=== PATIENT | female | born 1945 | race Caucasian/White ===

== ENCOUNTER 2020-05-09 15:18 | Inpatient (IN) | payer MEDICARE, BC ==
[2020-05-10] MEDS ORDERED: ATOR20TA PO (03:52)
[2020-05-10] MEDS ORDERED: GABA-532 PO (03:52)
[2020-05-10] MEDS ORDERED: PROP40TA7 PO (03:52)
[2020-05-10] MEDS ORDERED: FLUT16SP BNOSTRILS (03:52)
[2020-05-10] MEDS ORDERED: PANT40TA49 PO (03:52)
[2020-05-10] MEDS ORDERED: LORA-259 PO (03:52)
[2020-05-10] MEDS ORDERED: sodium chloride PO (03:52)
[2020-05-10] MEDS ORDERED: LISI40TA4 PO (03:52)
[2020-05-10] MEDS ORDERED: TRIF7.5D5 EACHEYE (03:52)
== END 2020-05-10 00:03 | disposition still patient (30) | DRG 885 ==
LOC: GPS 22:14
PROVIDERS: ADMIT Psychiatry & Neurology Psychiatry; ATTEND Internal Medicine
DX: F29 Unspecified psychosis not due to a substance or known physiological condition (principal)

== ENCOUNTER 2020-05-10 03:41 | Inpatient (IN) | payer MEDICARE, BC ==
[~2020-05-10] VITALS: Ht 160 cm; Wt 57.2 kg
[2020-05-10] MEDS ORDERED: ATOR20TA PO (03:52)
[2020-05-10] MEDS ORDERED: TRIF7.5D5 EACHEYE (03:52)
[2020-05-10] MEDS ORDERED: sodium chloride PO (03:52)
[2020-05-10] MEDS ORDERED: LISI40TA4 PO (03:52)
[2020-05-10] MEDS ORDERED: PROP40TA7 PO (03:52)
[2020-05-10] MEDS ORDERED: FLUT16SP BNOSTRILS (03:52)
[2020-05-10] MEDS ORDERED: GABA-532 PO (03:52)
[2020-05-10] MEDS ORDERED: PANT40TA49 PO (03:52)
[2020-05-10] MEDS ORDERED: LORA-259 PO (03:52)
[2020-05-10] MEDS ORDERED: CLONAZEPAM 0.5 MG TABLET PO STA (04:54)
[2020-05-10] MEDS ORDERED: MAG HYDROX/AL HYDROX/SIMETH 30 ML LIQUID UDC PO PRN (05:00)
[2020-05-10] MEDS ORDERED: CLONIDINE HCL 0.1 MG TABLET PO ONE (06:15)
[2020-05-10] MEDS: CLONAZEPAM 0.5 MG TABLET PO PRN ×2 (06:28→13:36)
[2020-05-10] MEDS ORDERED: CLONAZEPAM 0.5 MG TABLET PO PRN (06:30)
[2020-05-10 07:30] VITALS: BP 118/64
[2020-05-10 07:55] LABS: CREATININE 0.7 mg/dL (0.6-1.3); POTASSIUM 4.5 mmol/L (3.5-5.1)
[2020-05-10 07:57] LABS: BASOPHILS # (AUTO) 0.1 K/uL (0.0-8.0); BASOPHILS % (AUTO) 1.7 % (0.0-2.0); EOSINOPHILS # (AUTO) 0.1 K/uL (0.0-0.7); EOSINOPHILS % (AUTO) 2.8 % (0.0-7.0); HEMATOCRIT 36.8 % (31.2-41.9); HEMOGLOBIN 12.4 g/dL (10.9-14.3); LYMPHOCYTES # (AUTO) 0.8 K/uL (20.0-40.0); LYMPHOCYTES % (AUTO) 21.1 % (20.5-51.5); MEAN CORPUSCULAR HEMOGLOBIN 33.6 uug (24.7-32.8); MEAN CORPUSCULAR HGB CONC 34 g/dL (32.3-35.6); MEAN CORPUSCULAR VOLUME 99.5 fL (75.5-95.3); MONOCYTES # (AUTO) 0.4 K/uL (2.0-10.0); MONOCYTES % (AUTO) 9.7 % (0.0-11.0); NEUTROPHILS # (AUTO) 2.4 K/uL (1.8-8.9); NEUTROPHILS % (AUTO) 64.7 % (38.5-71.5); PLATELET COUNT (AUTO) 225 K/uL (179-408); WHITE BLOOD COUNT (AUTO) 3.8 K/uL (3.8-11.8)
[2020-05-10] MEDS: PANTOPRAZOLE SODIUM 40 MG TABLET.DR PO SCH ×2 (08:28→17:20)
[2020-05-10] MEDS: FLUTICASONE PROP NASAL SPRAY 16 GM BOTTLE NS SCH (08:30)
[2020-05-10] MEDS: PROPRANOLOL HCL 40 MG TABLET PO SCH ×2 (08:30→20:33)
[2020-05-10] MEDS ORDERED: TRIFLURIDINE XX SCH (15:00)
[2020-05-10 16:18] VITALS: BP 116/77
[2020-05-10] MEDS: SODIUM CHLORIDE 1,000 MG TABLET PO SCH (17:20)
[2020-05-10 20:00] VITALS: BP 119/66
[2020-05-10] MEDS: HALOPERIDOL 5 MG TABLET PO SCH (20:25)
[2020-05-10] MEDS: ATORVASTATIN 20 MG TABLET PO SCH (20:25)
[2020-05-10] MEDS: MIRTAZAPINE 15 MG TABLET PO SCH (20:25)
[2020-05-10] MEDS: LISINOPRIL 20 MG TABLET PO SCH (20:26)
[2020-05-10] MEDS ORDERED: TRIFLUOPERAZINE 5 MG PO SCH (21:00)
[2020-05-11] MEDS: PANTOPRAZOLE SODIUM 40 MG TABLET.DR PO SCH ×2 (06:02→16:02)
[2020-05-11 07:30] VITALS: BP 154/85
[2020-05-11] MEDS: FLUTICASONE PROP NASAL SPRAY 16 GM BOTTLE NS SCH (08:08)
[2020-05-11] MEDS: SODIUM CHLORIDE 1,000 MG TABLET PO SCH (08:08)
[2020-05-11] MEDS: PROPRANOLOL HCL 40 MG TABLET PO SCH ×2 (08:09→20:09)
[2020-05-11] MEDS: HYDROXYZINE PAMOATE 25 MG CAPSULE PO PRN (08:41)
[2020-05-11] MEDS: CLONAZEPAM 0.5 MG TABLET PO PRN ×3 (09:50→20:05)
[2020-05-11 16:00] VITALS: BP 107/55
[2020-05-11 20:00] VITALS: BP 128/67
[2020-05-11] MEDS: MIRTAZAPINE 15 MG TABLET PO SCH (20:04)
[2020-05-11] MEDS: HALOPERIDOL 5 MG TABLET PO SCH (20:04)
[2020-05-11] MEDS: ATORVASTATIN 20 MG TABLET PO SCH (20:05)
[2020-05-11] MEDS: LISINOPRIL 20 MG TABLET PO SCH (20:09)
[2020-05-11] MEDS: TEMAZEPAM 7.5 MG CAPSULE PO PRN (20:30)
[2020-05-12] MEDS: CLONAZEPAM 0.5 MG TABLET PO PRN ×4 (03:43→20:59)
[2020-05-12] MEDS: PANTOPRAZOLE SODIUM 40 MG TABLET.DR PO SCH ×2 (06:00→16:26)
[2020-05-12 07:30] VITALS: BP 134/77
[2020-05-12] MEDS: FLUTICASONE PROP NASAL SPRAY 16 GM BOTTLE NS SCH (08:27)
[2020-05-12] MEDS: PROPRANOLOL HCL 40 MG TABLET PO SCH ×2 (08:27→20:51)
[2020-05-12] MEDS: SODIUM CHLORIDE 1,000 MG TABLET PO SCH (08:27)
[2020-05-12] MEDS: MAGNESIUM HYDROXIDE 30 ML LIQUID UDC PO PRN (08:59)
[2020-05-12] MEDS: HYDROXYZINE PAMOATE 25 MG CAPSULE PO PRN ×2 (10:13→16:26)
[2020-05-12 15:11] VITALS: BP 139/79
[2020-05-12 19:41] LABS: *BILIRUBIN,URIN NEGATIVE (NEGATIVE); *BLOOD, URINE NEGATIVE (NEGATIVE); *CLARITY,URINE SLIGHTLY CLOUDY (CLEAR); *COLOR,URINE YELLOW (YELLOW); *KETONES,URINE NEGATIVE (NEGATIVE); *UROBILINOGEN,URINE 0.2 E.U./dl (NORMAL); LEUKOCYTE ESTERASE ,URINE 2+ (NEGATIVE); NITRITE, URINE NEGATIVE (NEGATIVE); UGLUCOSE NEGATIVE (NEGATIVE)
[2020-05-12 20:00] VITALS: BP 119/66
[2020-05-12] MEDS: TRIFLUOPERAZINE 2 MG PO SCH (20:48)
[2020-05-12] MEDS: ATORVASTATIN 20 MG TABLET PO SCH (20:48)
[2020-05-12] MEDS: LISINOPRIL 20 MG TABLET PO SCH (20:49)
[2020-05-12] MEDS ORDERED: TRIFLUOPERAZINE 5 MG PO SCH (21:00)
[2020-05-12] MEDS: TEMAZEPAM 7.5 MG CAPSULE PO PRN (22:07)
[2020-05-12 23:49] LABS: BACTERIA,URINE FEW /HPF (NONE SEEN); SQUAMOUS EPITHELIAL CELL,UR FEW /HPF (NONE SEEN)
[2020-05-13] MEDS: CLONAZEPAM 0.5 MG TABLET PO PRN ×3 (04:17→20:29)
[2020-05-13] MEDS: PANTOPRAZOLE SODIUM 40 MG TABLET.DR PO SCH ×2 (06:35→16:32)
[2020-05-13 07:30] VITALS: BP 145/83
[2020-05-13] MEDS: FLUTICASONE PROP NASAL SPRAY 16 GM BOTTLE NS SCH (08:09)
[2020-05-13] MEDS: SODIUM CHLORIDE 1,000 MG TABLET PO SCH (08:10)
[2020-05-13] MEDS: PROPRANOLOL HCL 40 MG TABLET PO SCH ×2 (08:10→20:30)
[2020-05-13] MEDS: HYDROXYZINE PAMOATE 25 MG CAPSULE PO PRN ×2 (08:10→16:32)
[2020-05-13] MEDS: POLYVINYL ALCOHOL OPHT DROPS 15 ML BOTTLE EACHEYE PRN ×2 (12:15→17:02)
[2020-05-13 15:45] VITALS: BP 138/74
[2020-05-13] MEDS: CEphaleXIN 500 MG CAPSULE PO SCH (16:32)
[2020-05-13] MEDS: ACETAMINOPHEN 325 MG TABLET PO PRN (18:11)
[2020-05-13 19:52] VITALS: BP 138/74
[2020-05-13] MEDS: TRIFLUOPERAZINE 2 MG PO SCH (20:29)
[2020-05-13] MEDS: LISINOPRIL 20 MG TABLET PO SCH (20:30)
[2020-05-13] MEDS: ATORVASTATIN 20 MG TABLET PO SCH (20:30)
[2020-05-14] MEDS: HYDROXYZINE PAMOATE 25 MG CAPSULE PO PRN ×2 (02:10→09:34)
[2020-05-14] MEDS: CLONAZEPAM 0.5 MG TABLET PO PRN ×2 (06:30→20:56)
[2020-05-14] MEDS: PANTOPRAZOLE SODIUM 40 MG TABLET.DR PO SCH ×2 (06:30→16:34)
[2020-05-14 07:30] VITALS: BP 142/66
[2020-05-14] MEDS: FLUTICASONE PROP NASAL SPRAY 16 GM BOTTLE NS SCH (08:55)
[2020-05-14] MEDS: PROPRANOLOL HCL 40 MG TABLET PO SCH ×2 (08:56→20:51)
[2020-05-14] MEDS: CEphaleXIN 500 MG CAPSULE PO SCH ×2 (08:57→16:34)
[2020-05-14] MEDS: SODIUM CHLORIDE 1,000 MG TABLET PO SCH (08:58)
[2020-05-14 16:05] VITALS: BP 111/68
[2020-05-14 20:42] VITALS: BP 99/49
[2020-05-14] MEDS: TRIFLUOPERAZINE 2 MG PO SCH (20:45)
[2020-05-14] MEDS: ATORVASTATIN 20 MG TABLET PO SCH (20:46)
[2020-05-14] MEDS: LISINOPRIL 20 MG TABLET PO SCH (20:52)
[2020-05-15] MEDS: CLONAZEPAM 0.5 MG TABLET PO PRN ×2 (04:15→10:08)
[2020-05-15] MEDS: PANTOPRAZOLE SODIUM 40 MG TABLET.DR PO SCH ×2 (06:04→17:23)
[2020-05-15 07:30] VITALS: BP 136/65
[2020-05-15] MEDS: CEphaleXIN 500 MG CAPSULE PO SCH ×2 (08:36→17:23)
[2020-05-15] MEDS: FLUTICASONE PROP NASAL SPRAY 16 GM BOTTLE NS SCH (08:36)
[2020-05-15] MEDS: SODIUM CHLORIDE 1,000 MG TABLET PO SCH (08:37)
[2020-05-15] MEDS: PROPRANOLOL HCL 40 MG TABLET PO SCH ×2 (08:37→20:05)
[2020-05-15] MEDS: ASPIRIN EC 81 MG TABLET.DR PO SCH (10:05)
[2020-05-15] MEDS: POLYVINYL ALCOHOL OPHT DROPS 15 ML BOTTLE EACHEYE PRN (11:51)
[2020-05-15 16:00] VITALS: BP 113/62
[2020-05-15] MEDS: ACETAMINOPHEN 325 MG TABLET PO PRN (18:19)
[2020-05-15 20:00] VITALS: BP 128/81
[2020-05-15] MEDS: ATORVASTATIN 20 MG TABLET PO SCH (20:04)
[2020-05-15] MEDS: LISINOPRIL 20 MG TABLET PO SCH (20:05)
[2020-05-15] MEDS: TRIFLUOPERAZINE 2 MG PO SCH (20:06)
[2020-05-16] MEDS: TEMAZEPAM 7.5 MG CAPSULE PO PRN (01:28)
[2020-05-16] MEDS: HYDROXYZINE PAMOATE 25 MG CAPSULE PO PRN ×2 (02:30→15:50)
[2020-05-16] MEDS: PANTOPRAZOLE SODIUM 40 MG TABLET.DR PO SCH ×2 (06:08→17:04)
[2020-05-16 07:30] VITALS: BP 148/77
[2020-05-16] MEDS: ASPIRIN EC 81 MG TABLET.DR PO SCH (08:26)
[2020-05-16] MEDS: FLUTICASONE PROP NASAL SPRAY 16 GM BOTTLE NS SCH (08:26)
[2020-05-16] MEDS: CEphaleXIN 500 MG CAPSULE PO SCH ×2 (08:28→17:04)
[2020-05-16] MEDS: SODIUM CHLORIDE 1,000 MG TABLET PO SCH (08:28)
[2020-05-16] MEDS: PROPRANOLOL HCL 40 MG TABLET PO SCH ×2 (08:29→21:00)
[2020-05-16] MEDS: CLONAZEPAM 0.5 MG TABLET PO PRN ×2 (08:29→23:20)
[2020-05-16] MEDS: ACETAMINOPHEN 325 MG TABLET PO PRN (12:28)
[2020-05-16 16:00] VITALS: BP 144/74
[2020-05-16 20:00] VITALS: BP 115/64
[2020-05-16] MEDS: TRIFLUOPERAZINE 2 MG PO SCH (20:40)
[2020-05-16] MEDS: ATORVASTATIN 20 MG TABLET PO SCH (20:41)
[2020-05-16] MEDS: LISINOPRIL 20 MG TABLET PO SCH (21:00)
[2020-05-17] MEDS: PANTOPRAZOLE SODIUM 40 MG TABLET.DR PO SCH ×2 (06:09→16:15)
[2020-05-17] MEDS: CLONAZEPAM 0.5 MG TABLET PO PRN ×2 (06:48→15:06)
[2020-05-17 07:30] VITALS: BP_SYST 143; BP_DIAS 74; BP_DIAS 82
[2020-05-17] MEDS: ASPIRIN EC 81 MG TABLET.DR PO SCH (08:07)
[2020-05-17] MEDS: CEphaleXIN 500 MG CAPSULE PO SCH ×2 (08:07→16:15)
[2020-05-17] MEDS: PROPRANOLOL HCL 40 MG TABLET PO SCH ×3 (08:16→20:41)
[2020-05-17] MEDS: FLUTICASONE PROP NASAL SPRAY 16 GM BOTTLE NS SCH (08:34)
[2020-05-17] MEDS: SODIUM CHLORIDE 1,000 MG TABLET PO SCH (08:34)
[2020-05-17] MEDS: HYDROXYZINE PAMOATE 25 MG CAPSULE PO PRN (10:29)
[2020-05-17 16:00] VITALS: BP 140/72
[2020-05-17 20:00] VITALS: BP 136/60
[2020-05-17] MEDS: ATORVASTATIN 20 MG TABLET PO SCH (20:10)
[2020-05-17] MEDS: LISINOPRIL 20 MG TABLET PO SCH ×2 (20:10→20:41)
[2020-05-17] MEDS: TRIFLUOPERAZINE 2 MG PO SCH (20:11)
[2020-05-18] MEDS: CLONAZEPAM 0.5 MG TABLET PO PRN ×2 (02:43→20:06)
[2020-05-18] MEDS: PANTOPRAZOLE SODIUM 40 MG TABLET.DR PO SCH ×2 (06:28→16:05)
[2020-05-18 08:00] VITALS: BP 153/99
[2020-05-18] MEDS: ASPIRIN EC 81 MG TABLET.DR PO SCH (08:22)
[2020-05-18] MEDS: CEphaleXIN 500 MG CAPSULE PO SCH (08:22)
[2020-05-18] MEDS: FLUTICASONE PROP NASAL SPRAY 16 GM BOTTLE NS SCH (08:22)
[2020-05-18] MEDS: SODIUM CHLORIDE 1,000 MG TABLET PO SCH (08:23)
[2020-05-18] MEDS: PROPRANOLOL HCL 40 MG TABLET PO SCH ×2 (08:23→20:08)
[2020-05-18] MEDS: POLYVINYL ALCOHOL OPHT DROPS 15 ML BOTTLE EACHEYE PRN ×2 (08:24→20:07)
[2020-05-18] MEDS: HYDROXYZINE PAMOATE 25 MG CAPSULE PO PRN (09:34)
[2020-05-18] MEDS: FERROUS SULFATE 325 MG TABEC PO SCH (16:05)
[2020-05-18 16:38] VITALS: BP 144/70
[2020-05-18] MEDS: TRIFLUOPERAZINE 2 MG PO SCH (20:06)
[2020-05-18] MEDS: ATORVASTATIN 20 MG TABLET PO SCH (20:08)
[2020-05-18] MEDS: LISINOPRIL 20 MG TABLET PO SCH (20:08)
[2020-05-18 20:54] VITALS: BP 140/74
[2020-05-19] MEDS: HYDROXYZINE PAMOATE 25 MG CAPSULE PO PRN ×2 (03:50→18:36)
[2020-05-19] MEDS: PANTOPRAZOLE SODIUM 40 MG TABLET.DR PO SCH ×2 (06:01→17:08)
[2020-05-19 07:30] VITALS: BP 107/50
[2020-05-19] MEDS: ASPIRIN EC 81 MG TABLET.DR PO SCH (08:23)
[2020-05-19] MEDS: FERROUS SULFATE 325 MG TABEC PO SCH ×2 (08:23→17:08)
[2020-05-19] MEDS: SODIUM CHLORIDE 1,000 MG TABLET PO SCH (08:24)
[2020-05-19] MEDS: PROPRANOLOL HCL 40 MG TABLET PO SCH ×2 (08:25→20:22)
[2020-05-19] MEDS: FLUTICASONE PROP NASAL SPRAY 16 GM BOTTLE NS SCH (08:26)
[2020-05-19] MEDS: CLONAZEPAM 0.5 MG TABLET PO PRN ×2 (10:28→19:26)
[2020-05-19 15:58] VITALS: BP 106/45
[2020-05-19 20:00] VITALS: BP 93/53
[2020-05-19] MEDS: TRIFLUOPERAZINE 2 MG PO SCH (20:34)
[2020-05-19] MEDS: ATORVASTATIN 20 MG TABLET PO SCH (20:35)
[2020-05-19] MEDS: LISINOPRIL 20 MG TABLET PO SCH (20:35)
[2020-05-20] MEDS: PANTOPRAZOLE SODIUM 40 MG TABLET.DR PO SCH ×2 (06:27→16:20)
[2020-05-20 07:30] VITALS: BP 137/68
[2020-05-20] MEDS: FLUTICASONE PROP NASAL SPRAY 16 GM BOTTLE NS SCH (08:22)
[2020-05-20] MEDS: PROPRANOLOL HCL 40 MG TABLET PO SCH ×2 (08:22→21:00)
[2020-05-20] MEDS: FERROUS SULFATE 325 MG TABEC PO SCH ×2 (08:22→16:20)
[2020-05-20] MEDS: SODIUM CHLORIDE 1,000 MG TABLET PO SCH (08:22)
[2020-05-20] MEDS: ASPIRIN EC 81 MG TABLET.DR PO SCH (08:22)
[2020-05-20] MEDS: HYDROXYZINE PAMOATE 25 MG CAPSULE PO PRN (12:47)
[2020-05-20 15:51] VITALS: BP 104/67
[2020-05-20] MEDS: CLONAZEPAM 0.5 MG TABLET PO PRN (18:35)
[2020-05-20 20:00] VITALS: BP 126/60
[2020-05-20] MEDS: ATORVASTATIN 20 MG TABLET PO SCH (20:52)
[2020-05-20] MEDS: LISINOPRIL 20 MG TABLET PO SCH (21:00)
[2020-05-20] MEDS: TRIFLUOPERAZINE 2 MG PO SCH (21:00)
[2020-05-21] MEDS: CLONAZEPAM 0.5 MG TABLET PO PRN ×2 (03:38→16:14)
[2020-05-21] MEDS: PANTOPRAZOLE SODIUM 40 MG TABLET.DR PO SCH ×2 (06:39→16:13)
[2020-05-21 07:30] VITALS: BP 131/71
[2020-05-21] MEDS: FERROUS SULFATE 325 MG TABEC PO SCH ×2 (08:43→16:14)
[2020-05-21] MEDS: ASPIRIN EC 81 MG TABLET.DR PO SCH (08:43)
[2020-05-21] MEDS: SODIUM CHLORIDE 1,000 MG TABLET PO SCH (08:44)
[2020-05-21] MEDS: PROPRANOLOL HCL 40 MG TABLET PO SCH ×2 (08:45→21:00)
[2020-05-21] MEDS: FLUTICASONE PROP NASAL SPRAY 16 GM BOTTLE NS SCH (09:00)
[2020-05-21] MEDS: HYDROXYZINE PAMOATE 25 MG CAPSULE PO PRN (10:43)
[2020-05-21 15:46] VITALS: BP 119/42
[2020-05-21] MEDS: ACETAMINOPHEN 325 MG TABLET PO PRN (16:14)
[2020-05-21] MEDS: POLYVINYL ALCOHOL OPHT DROPS 15 ML BOTTLE EACHEYE PRN (16:20)
[2020-05-21 20:00] VITALS: BP 115/65
[2020-05-21] MEDS: TRIFLUOPERAZINE 2 MG PO SCH (20:00)
[2020-05-21] MEDS: ATORVASTATIN 20 MG TABLET PO SCH (20:00)
[2020-05-21] MEDS: LISINOPRIL 20 MG TABLET PO SCH (21:00)
[2020-05-22] MEDS: HYDROXYZINE PAMOATE 25 MG CAPSULE PO PRN ×2 (00:53→09:56)
[2020-05-22] MEDS: PANTOPRAZOLE SODIUM 40 MG TABLET.DR PO SCH (06:53)
[2020-05-22 07:30] VITALS: BP 139/96
[2020-05-22] MEDS: ASPIRIN EC 81 MG TABLET.DR PO SCH (09:46)
[2020-05-22] MEDS: FERROUS SULFATE 325 MG TABEC PO SCH (09:46)
[2020-05-22] MEDS: FLUTICASONE PROP NASAL SPRAY 16 GM BOTTLE NS SCH (09:49)
[2020-05-22 09:50] VITALS: BP 139/96
[2020-05-22] MEDS: PROPRANOLOL HCL 40 MG TABLET PO SCH (09:50)
[2020-05-22] MEDS: SODIUM CHLORIDE 1,000 MG TABLET PO SCH (09:55)
[2020-05-22] MEDS: MAGNESIUM HYDROXIDE 30 ML LIQUID UDC PO PRN (13:23)
== END 2020-05-22 16:08 | DRG 885 ==
LOC: ER 03:45 → GPS 04:52
PROVIDERS: ADMIT Psychiatry & Neurology Psychiatry; ATTEND Registered Nurse
DX: F20.0 Paranoid schizophrenia (principal); N39.0 Urinary tract infection, site not specified; T42.4X2D Poisoning by benzodiazepines, intentional self-harm, subsequent encounter; E78.5 Hyperlipidemia, unspecified; F41.9 Anxiety disorder, unspecified; F32.9 Major depressive disorder, single episode, unspecified; F20.9 Schizophrenia, unspecified; I10 Essential (primary) hypertension; Z91.5 Personal history of self-harm; F29 Unspecified psychosis not due to a substance or known physiological condition; Z20.822 Contact with and (suspected) exposure to COVID-19
CPT/HCPCS: 36415; 85025; 87086; 93005; J3535

== ENCOUNTER 2020-06-21 15:03 | Inpatient (IN) | payer MEDICARE, BC ==
[~2020-06-21] VITALS: Ht 165.1 cm; Wt 54.4 kg
[~2020-06-21 15:03] MED LIST: ATOR20TA PO; FLUT16SP BNOSTRILS; LISI40TA13 PO; PANT40TA49 PO; PROP40TA7 PO; TRIF7.5D5 EACHEYE; sodium chloride PO
[2020-06-21] MEDS ORDERED: IV NORMAL SALINE 1000 ML BAG IV ONE (15:30)
[2020-06-21] MEDS ORDERED: DEXT15DR6 EACHEYE (15:39)
[2020-06-21] MEDS ORDERED: ASPI81TA31 PO (15:39)
[2020-06-21] MEDS ORDERED: FERR325T28 PO (15:39)
[2020-06-21] MEDS ORDERED: ACET-2154 PO (15:39)
[2020-06-21] MEDS ORDERED: QUET25TA PO ×2 (15:39)
[2020-06-21 15:50] LABS: BASOPHILS % (AUTO) 0.6 % (0.0-2.0); EOSINOPHILS # (AUTO) 0.2 K/uL (0.0-0.7); EOSINOPHILS % (AUTO) 2.4 % (0.0-7.0); HEMATOCRIT 41.7 % (31.2-41.9); HEMOGLOBIN 14.2 g/dL (10.9-14.3); LYMPHOCYTES % (AUTO) 12.9 % (20.5-51.5); MEAN CORPUSCULAR HEMOGLOBIN 32.8 uug (24.7-32.8); MEAN CORPUSCULAR HGB CONC 34 g/dL (32.3-35.6); MEAN CORPUSCULAR VOLUME 96.1 fL (75.5-95.3); MONOCYTES # (AUTO) 0.9 K/uL (2.0-10.0); MONOCYTES % (AUTO) 12.1 % (0.0-11.0); NEUTROPHILS # (AUTO) 5.5 K/uL (1.8-8.9); PLATELET COUNT (AUTO) 308 K/uL (179-408); RED BLOOD CELL COUNT(AUTO) 4.34 MIL/uL (3.63-4.92); WHITE BLOOD COUNT (AUTO) 7.6 K/uL (3.8-11.8)
[2020-06-21 15:58] LABS: CREATININE 0.8 mg/dL (0.6-1.3); POTASSIUM 3.5 mmol/L (3.5-5.1)
--- NOTE | 2020-06-21 15:59 | NUR ---
PT IS IN ROOM #1B. DR CRANE EVALUATED THE PT.
[2020-06-21 16:10] LABS: BILIRUBIN,DIRECT 0.1 mg/dL (0.0-0.2); BILIRUBIN,TOTAL 0.3 mg/dL (0.2-1.0); TOTAL PROTEIN, SERUM 6.7 g/dL (6.4-8.2)
[2020-06-21 16:17] LABS: THYROID STIMULATING HORMONE 0.954 mIU/mL (0.358-3.740)
--- NOTE | 2020-06-21 18:46 | NUR ---
CRISIS RECEIVABLE MANAGER ART EVALUATED THE PT. PT IS PLACED ON 51/50 HOLD DUE TO GRAVELY DISABLED CONDITION. DR CRANE MEDICALLY CLEARED THE PT. REPORT WAS GIVEN TO SHARED SERVICES REPRESENTATIVE BOOGIE NELSON.
--- NOTE | 2020-06-21 19:22 | NUR ---
Received patient from BOOGIE Dawn. Patient resting in bed. A&O x3/4 but does report some hallucinations and sporatically yells incoherent phrases/obcenities. No reports of acute distress. Understands that she is waiting to be admitted to [facility]HU.
--- NOTE | 2020-06-21 19:50 | NUR ---
Report Given to RN at MHU. Patient to be transferred to Room 139-A.
--- NOTE | 2020-06-21 20:10 | NUR ---
Patient transferred to MHU via gurney at this time. Patient in stable condition and medeiclaly cleared by Dr. Awad. All belongings accompannied patient. Taken to Room 139-A under the care of her nurse. All transfer paperwork handed off.
[2020-06-21] MEDS ORDERED: MAGNESIUM HYDROXIDE 30 ML LIQUID UDC PO PRN (20:15)
[2020-06-21] MEDS ORDERED: ACETAMINOPHEN 325 MG TABLET PO PRN (21:15)
[2020-06-21 22:35] VITALS: BP 159/84
[2020-06-21] MEDS: LORAZEPAM 1 MG TABLET PO PRN (23:14)
--- NOTE | 2020-06-21 23:30 | NUR ---
Received a 74 yr old female from [facility] was brought in to ER with increasing anxiety, agitation and decrease appetite. Patient AAOx2-3 Diagnosis of auditory hallucinations, psychosis and suicidal ideation x2. Hx of schizophrenia, suicidal ideation x2, HTN, COPD< CAD, Breast Implant. Stent placement, GERD, Anxiety, Schizophrenia. Upon admission patient calm and cooperative. When put back in bed patient became very confused, yelling and saying obscenities. OOB to gerichair. Ativan given. Patient very repetitive and keep on yelling. Will monitor patient for any further behavioral issues. Restoril also given. Patient compliant with meds. VSS.
[2020-06-22] MEDS: LORAZEPAM 1 MG TABLET PO PRN (03:19)
[2020-06-22] MEDS: ACETAMINOPHEN 325 MG TABLET PO PRN ×2 (03:19→20:46)
[2020-06-22] MEDS: TEMAZEPAM 7.5 MG CAPSULE PO PRN ×2 (03:39→20:45)
--- NOTE | 2020-06-22 06:40 | NUR ---
Patient been up all night long. Had Ativan x2 plus Restoril patient still up. Sat on gerichair all night, refused to go back to bed, she says she feels better while on the chair. No behavioral issues noted. Had some episodes of talking to self repetitively. No agitation or restlessness noted, confused but easily redirected. Had no sleep at all last night, been awake all night long.
[2020-06-22 07:30] VITALS: BP 115/40
[2020-06-22 08:21] LABS: BILIRUBIN,TOTAL 0.3 mg/dL (0.2-1.0); CREATININE 0.9 mg/dL (0.6-1.3); POTASSIUM 4.2 mmol/L (3.5-5.1); TOTAL PROTEIN, SERUM 6.4 g/dL (6.4-8.2)
[2020-06-22] MEDS: PROPRANOLOL HCL 40 MG TABLET PO SCH ×2 (08:30→17:00)
[2020-06-22] MEDS: SODIUM CHLORIDE 1,000 MG TABLET PO SCH (08:30)
[2020-06-22] MEDS: ASPIRIN 81 MG TAB.CHEW PO SCH (08:30)
[2020-06-22] MEDS: FLUTICASONE PROP NASAL SPRAY 16 GM BOTTLE NS SCH (08:30)
[2020-06-22] MEDS: FERROUS SULFATE 325 MG TABEC PO SCH ×2 (08:30→17:11)
[2020-06-22] MEDS: PANTOPRAZOLE SODIUM 40 MG TABLET.DR PO SCH (08:30)
[2020-06-22] MEDS: MAG HYDROX/AL HYDROX/SIMETH 30 ML LIQUID UDC PO PRN (13:33)
[2020-06-22 16:00] VITALS: BP 105/65
[2020-06-22 20:00] VITALS: BP 137/73
[2020-06-22] MEDS: ATORVASTATIN 20 MG TABLET PO SCH (20:45)
[2020-06-23 07:30] VITALS: BP 122/55
[2020-06-23] MEDS: SODIUM CHLORIDE 1,000 MG TABLET PO SCH (09:17)
[2020-06-23] MEDS: ASPIRIN 81 MG TAB.CHEW PO SCH (09:17)
[2020-06-23] MEDS: PROPRANOLOL HCL 40 MG TABLET PO SCH ×2 (09:17→16:39)
[2020-06-23] MEDS: FLUTICASONE PROP NASAL SPRAY 16 GM BOTTLE NS SCH (09:17)
[2020-06-23] MEDS: risperiDONE 1 MG TABLET PO SCH ×2 (09:17→20:13)
[2020-06-23] MEDS: FERROUS SULFATE 325 MG TABEC PO SCH ×2 (09:17→16:39)
[2020-06-23] MEDS: PANTOPRAZOLE SODIUM 40 MG TABLET.DR PO SCH (09:17)
[2020-06-23 15:36] VITALS: BP 112/58
[2020-06-23] MEDS: LORAZEPAM 1 MG TABLET PO PRN (16:39)
[2020-06-23 20:05] VITALS: BP 94/53
[2020-06-23] MEDS: ATORVASTATIN 20 MG TABLET PO SCH (20:13)
[2020-06-24] MEDS: LORAZEPAM 1 MG TABLET PO PRN ×2 (05:19→15:03)
[2020-06-24 06:37] LABS: *BILIRUBIN,URIN NEGATIVE (NEGATIVE); *BLOOD, URINE NEGATIVE (NEGATIVE); *COLOR,URINE YELLOW (YELLOW); *KETONES,URINE NEGATIVE (NEGATIVE); *UROBILINOGEN,URINE 0.2 E.U./dl (NORMAL); LEUKOCYTE ESTERASE ,URINE TRACE (NEGATIVE); NITRITE, URINE NEGATIVE (NEGATIVE); PH,URINE 6.5 (5.0-8.0); UGLUCOSE NEGATIVE (NEGATIVE)
[2020-06-24 07:30] VITALS: BP 97/51
[2020-06-24] MEDS: FLUTICASONE PROP NASAL SPRAY 16 GM BOTTLE NS SCH (08:44)
[2020-06-24] MEDS: ASPIRIN 81 MG TAB.CHEW PO SCH (08:45)
[2020-06-24] MEDS: FERROUS SULFATE 325 MG TABEC PO SCH ×2 (08:45→16:53)
[2020-06-24] MEDS: PANTOPRAZOLE SODIUM 40 MG TABLET.DR PO SCH (08:45)
[2020-06-24] MEDS: SODIUM CHLORIDE 1,000 MG TABLET PO SCH (08:45)
[2020-06-24] MEDS: PROPRANOLOL HCL 40 MG TABLET PO SCH ×2 (08:45→16:55)
[2020-06-24] MEDS: CEphaleXIN 500 MG CAPSULE PO SCH ×2 (08:46→16:53)
[2020-06-24] MEDS: risperiDONE 1 MG TABLET PO SCH (08:46)
[2020-06-24] MEDS: MAG HYDROX/AL HYDROX/SIMETH 30 ML LIQUID UDC PO PRN (11:25)
--- NOTE | 2020-06-24 11:27 | NUR ---
Friend Contact: This SW contacted patient's friend Zuleyma ([phone]) who is involved in patient's care. She stated her sister in law Francine ([phone]) is not involved in patient's care.
--- NOTE | 2020-06-24 11:27 | NUR ---
Initial Discharge Plan: Patient is from [facility] [address] [place] [address] ([phone]) and will return back. This SW confirmed with admin Albaro from [facility] This SW contacted patient's friend Zuleyma ([phone]) who is involved in patient's care. She stated her sister in law Francine ([phone]) is not involved in patient's care. This SW will work with the MD and treatment team to help coordinate proper discharge.
--- NOTE | 2020-06-24 11:28 | NUR ---
Firearms Report: Lead Ruby On Rails Developer completed and submitted a [employer] firearms report for 5150 grave disability certification. A copy of report has been placed in patient chart.
[2020-06-24 14:54] LABS: *CLARITY,URINE HAZY (CLEAR); BACTERIA,URINE FEW /HPF (NONE SEEN); RBC,URINE 0-3 /HPF (0-3); WBC,URINE 20-50 /HPF (0-3)
[2020-06-24 14:55] LABS: CALCIUM OXALATE CRYSTALS,UR FEW /HPF (NONE SEEN); SQUAMOUS EPITHELIAL CELL,UR FEW /HPF (NONE SEEN)
[2020-06-24 16:00] VITALS: BP 95/57
[2020-06-24] MEDS: ATORVASTATIN 20 MG TABLET PO SCH (20:19)
[2020-06-24 20:41] VITALS: BP 100/52
[2020-06-24] MEDS ORDERED: risperiDONE 1 MG TABLET PO SCH (21:00)
[2020-06-24] MEDS ORDERED: OLANZAPINE ZYDIS 5 MG TAB.RAPDIS PO SCH (21:00)
[2020-06-25 07:30] VITALS: BP 134/61
[2020-06-25] MEDS: SODIUM CHLORIDE 1,000 MG TABLET PO SCH (08:16)
[2020-06-25] MEDS: FERROUS SULFATE 325 MG TABEC PO SCH ×2 (08:16→17:27)
[2020-06-25] MEDS: CEphaleXIN 500 MG CAPSULE PO SCH ×2 (08:16→17:27)
[2020-06-25] MEDS: ASPIRIN 81 MG TAB.CHEW PO SCH (08:16)
[2020-06-25] MEDS: FLUTICASONE PROP NASAL SPRAY 16 GM BOTTLE NS SCH (08:16)
[2020-06-25] MEDS: PANTOPRAZOLE SODIUM 40 MG TABLET.DR PO SCH (08:16)
[2020-06-25] MEDS: PROPRANOLOL HCL 40 MG TABLET PO SCH ×2 (08:17→17:00)
--- NOTE | 2020-06-25 10:45 | NUR ---
Individual Counseling: pitch worker met with patient for brief counseling to help address patients presenting problem disorganized thought process. Patient appeared confused and disorganized. Patient was unable to have a proper conversation. Patient was fixated on being discharged back home. This SW explained patient will return back to [facility] as she needs more assistance at home.
[2020-06-25 15:16] VITALS: BP 91/46
[2020-06-25] MEDS: ENSURE ENLIVE (VAN) 240 ML LIQUID PO SCH (17:27)
--- NOTE | 2020-06-25 18:45 | NUR ---
patient is more confused and disorganized sleeping most of shift, unable to make any conversations with family on the phone, Dr. bowman made aware with medication adjusted.
[2020-06-25] MEDS: ATORVASTATIN 20 MG TABLET PO SCH (20:05)
[2020-06-25 20:20] VITALS: BP 127/51
[2020-06-25] MEDS ORDERED: OLANZAPINE ZYDIS 5 MG TAB.RAPDIS PO SCH ×2 (21:00)
[2020-06-26] MEDS: TEMAZEPAM 7.5 MG CAPSULE PO PRN (01:48)
--- NOTE | 2020-06-26 01:49 | NUR ---
GPS: Observed pt.to be awake,anxious and requesting to be let out of the unit. Re-directed at this time. Restoril 7.5 mg offered and taken. Will monitor effectiveness. Re-assured by staff prn. Quiet environment provided to facilitate sleep. Bed alarm on for safety.
[2020-06-26] MEDS: LORAZEPAM 1 MG TABLET PO PRN (03:33)
--- NOTE | 2020-06-26 03:35 | NUR ---
GPS: Pt.is anxious,yelling and trying to pace up and down the hallway. Re-directed at this time. Encouraged to go back to sleep. Ativan 1mg given PO. Will monitor effectiveness. Re-assured prn.
[2020-06-26 07:30] VITALS: BP 136/70
[2020-06-26] MEDS: ASPIRIN 81 MG TAB.CHEW PO SCH (08:48)
[2020-06-26] MEDS: PANTOPRAZOLE SODIUM 40 MG TABLET.DR PO SCH (08:48)
[2020-06-26] MEDS: FLUTICASONE PROP NASAL SPRAY 16 GM BOTTLE NS SCH (08:48)
[2020-06-26] MEDS: SODIUM CHLORIDE 1,000 MG TABLET PO SCH (08:48)
[2020-06-26] MEDS: CEphaleXIN 500 MG CAPSULE PO SCH ×2 (08:48→17:25)
[2020-06-26] MEDS: FERROUS SULFATE 325 MG TABEC PO SCH ×2 (08:48→17:26)
[2020-06-26] MEDS: PROPRANOLOL HCL 40 MG TABLET PO SCH ×2 (08:49→17:25)
[2020-06-26] MEDS: ENSURE ENLIVE (VAN) 240 ML LIQUID PO SCH ×2 (08:49→17:25)
[2020-06-26 16:08] VITALS: BP 114/60
[2020-06-26] MEDS: OLANZAPINE 2.5 MG TABLET PO SCH (20:41)
[2020-06-26] MEDS: ATORVASTATIN 20 MG TABLET PO SCH (20:41)
[2020-06-26 21:16] VITALS: BP 110/50
[2020-06-27] MEDS: TEMAZEPAM 7.5 MG CAPSULE PO PRN ×2 (02:32→22:30)
[2020-06-27] MEDS: ACETAMINOPHEN 325 MG TABLET PO PRN (03:08)
[2020-06-27] MEDS: LORAZEPAM 1 MG TABLET PO PRN (03:33)
--- NOTE | 2020-06-27 06:33 | NUR ---
Pt slept 5.30 hours. Got up with walker and walked through hallways around 0230H. C/o headache and requested sleep medication. Tolerated all medications well.
[2020-06-27 07:30] VITALS: BP 142/49
[2020-06-27] MEDS: FLUTICASONE PROP NASAL SPRAY 16 GM BOTTLE NS SCH (10:00)
[2020-06-27] MEDS: PANTOPRAZOLE SODIUM 40 MG TABLET.DR PO SCH (10:01)
[2020-06-27] MEDS: ASPIRIN 81 MG TAB.CHEW PO SCH (10:01)
[2020-06-27] MEDS: FERROUS SULFATE 325 MG TABEC PO SCH ×2 (10:02→16:55)
[2020-06-27] MEDS: PROPRANOLOL HCL 40 MG TABLET PO SCH ×2 (10:02→16:56)
[2020-06-27] MEDS: CEphaleXIN 500 MG CAPSULE PO SCH ×2 (10:02→16:55)
[2020-06-27] MEDS: SODIUM CHLORIDE 1,000 MG TABLET PO SCH (10:04)
[2020-06-27] MEDS: ENSURE ENLIVE (VAN) 240 ML LIQUID PO SCH ×2 (10:04→17:21)
--- NOTE | 2020-06-27 10:05 | NUR ---
Received pt in assigned room in bed, A&Ox3, able to verbalize needs, withdrawn, isolative. No acute distress noted, no complaints of pain or discomfort. Denies SI/HI/VH, but admits to AH. Per pt, the voice is "male" and "it tells me about my past" but "I want to stay in the present". Reality orientation provided. Pt is able to verbally contract for safety. Pt adherent with medications after multiple attempts and education. Fall precautions and clutter free environment ensured. Will continue to monitor.
--- NOTE | 2020-06-27 11:05 | NUR ---
Individual Counseling: cab worker met with patient for brief counseling to help address patients presenting problem disorganized thought process. Patient appeared confused and disorganized. Patient was able to recall it was her birthday. Patient stated she feels sad and wants to go home to celebrate her birthday. This SW helped patient express her emotions and feelings. This SW helped patient realize that she is at a hospital and is receiving treatment. Patient was cooperative and calm with this SW.
--- NOTE | 2020-06-27 13:37 | NUR ---
[facility] Hearing: Patient had 5250 probable cause hearing today and it was upheld for grave disability.
[2020-06-27 16:37] VITALS: BP 109/49
--- NOTE | 2020-06-27 18:33 | NUR ---
EOSS: Pt in bed, awake, remained withdrawn during shift. No acute distress noted, no complaints at this time. All needs met promptly. Pt remained adherent with medications and care. Continued to deny SI/HI/VH, but admits to AH. Reality orientation, redirection, reassurance provided as needed. Pt verbally CFS. Fall precautions and clutter free environment maintained. Will endorse care to overnight stocker.
[2020-06-27] MEDS: ATORVASTATIN 20 MG TABLET PO SCH (20:06)
[2020-06-27] MEDS: OLANZAPINE 2.5 MG TABLET PO SCH (20:06)
[2020-06-28] MEDS: LORAZEPAM 1 MG TABLET PO PRN (00:35)
[2020-06-28 07:30] VITALS: BP_SYST 111; BP_SYST 139; BP_DIAS 60; BP_DIAS 63
[2020-06-28] MEDS: ENSURE ENLIVE (VAN) 240 ML LIQUID PO SCH ×2 (08:46→17:53)
[2020-06-28] MEDS: ASPIRIN 81 MG TAB.CHEW PO SCH (08:46)
[2020-06-28] MEDS: PROPRANOLOL HCL 40 MG TABLET PO SCH ×2 (08:47→16:11)
[2020-06-28] MEDS: FLUTICASONE PROP NASAL SPRAY 16 GM BOTTLE NS SCH (08:47)
[2020-06-28] MEDS: SODIUM CHLORIDE 1,000 MG TABLET PO SCH (08:47)
[2020-06-28] MEDS: PANTOPRAZOLE SODIUM 40 MG TABLET.DR PO SCH (08:47)
[2020-06-28] MEDS: CEphaleXIN 500 MG CAPSULE PO SCH ×2 (08:47→16:08)
[2020-06-28] MEDS: FERROUS SULFATE 325 MG TABEC PO SCH ×2 (08:48→16:08)
--- NOTE | 2020-06-28 14:58 | NUR ---
Individual Counseling: chemical tank worker met with patient for brief counseling to help address patients presenting problem disorganized thought process. Patient appeared confused and disorganized. Patient appeared to be in a better mood today. However, patient did seem withdrawn and sad. This SW encouraged pt to go outside and to engage with peers. Patient listened to social media executive's advice and went outside to engage with peers.
[2020-06-28 16:31] VITALS: BP 138/62
[2020-06-28 20:07] VITALS: BP 121/50
[2020-06-28] MEDS: OLANZAPINE 2.5 MG TABLET PO SCH (20:25)
[2020-06-28] MEDS: ATORVASTATIN 20 MG TABLET PO SCH (21:07)
--- NOTE | 2020-06-28 23:00 | NUR ---
GPS: Patient still awake, Restoril offered for sleep. patient refused.
[2020-06-29] MEDS: LORAZEPAM 1 MG TABLET PO PRN ×2 (04:24→21:29)
--- NOTE | 2020-06-29 04:25 | NUR ---
patient c/o anxiety. ativan 1 mg po given.
--- NOTE | 2020-06-29 05:25 | NUR ---
patient calm now. resting in vanessa chair.prn effective.
--- NOTE | 2020-06-29 06:21 | NUR ---
GPS: Remain cooperative with care. took shower this morning. Pt slept 3 hours. ambulates with fww. agitation noted x1 ativan given and effective. resting in vanessa chair near nursing station comfortably. Tolerated all medications well.
[2020-06-29 07:30] VITALS: BP 137/74
--- NOTE | 2020-06-29 07:46 | NUR ---
Received patient calm, cooperative sitting on vanessa chair, patient very cheerful, minimizes her symptoms, compliant with medication, denies SI and HI. patient was put on q 15moniotring for safety, assited with ADL, no sign of any distress at this time
[2020-06-29] MEDS: ENSURE ENLIVE (VAN) 240 ML LIQUID PO SCH ×2 (08:00→16:23)
[2020-06-29] MEDS: FLUTICASONE PROP NASAL SPRAY 16 GM BOTTLE NS SCH (08:25)
[2020-06-29] MEDS: PANTOPRAZOLE SODIUM 40 MG TABLET.DR PO SCH (08:25)
[2020-06-29] MEDS: ASPIRIN 81 MG TAB.CHEW PO SCH (08:25)
[2020-06-29] MEDS: FERROUS SULFATE 325 MG TABEC PO SCH ×2 (08:26→16:23)
[2020-06-29] MEDS: SODIUM CHLORIDE 1,000 MG TABLET PO SCH (08:26)
[2020-06-29] MEDS: CEphaleXIN 500 MG CAPSULE PO SCH (08:26)
[2020-06-29] MEDS: PROPRANOLOL HCL 40 MG TABLET PO SCH ×2 (08:27→16:23)
[2020-06-29 16:00] VITALS: BP 111/54
--- NOTE | 2020-06-29 17:29 | NUR ---
seen and examined by ,
--- NOTE | 2020-06-29 17:42 | NUR ---
PATIENT REMAIN CALM , COOPERATIVE, PATIENT SOMEWHAT NEEDY AND ATTENTION SEEKER, PATIENT UNSTEADY WITH AMBULATION AND USES FWW , PATIENT ASSISTED WITH HER ADL, AND ATTENDED TO HER NEEDS, MONITORED [id number] NO SIGN OF DISTRESS AT THIS TIME
[2020-06-29 20:09] VITALS: BP 132/56
[2020-06-29] MEDS: ATORVASTATIN 20 MG TABLET PO SCH (20:14)
[2020-06-29] MEDS: OLANZAPINE 2.5 MG TABLET PO SCH (20:14)
--- NOTE | 2020-06-29 21:34 | NUR ---
PATIENT C/O ANXIETY. ATIVAN 1 MG PO GIVEN.
--- NOTE | 2020-06-29 22:35 | NUR ---
patient is calm now. prn effective for agitation.
--- NOTE | 2020-06-30 06:05 | NUR ---
GPS: Remain cooperative with care. took shower this morning. Pt slept 7.30 hours. pt ambulates with fww. Agitation noted x1 ativan given and effective. resting in bed comfortably. Tolerated all medications well. continue plan of care.
[2020-06-30 07:30] VITALS: BP 153/67
[2020-06-30] MEDS: ASPIRIN 81 MG TAB.CHEW PO SCH (08:02)
[2020-06-30] MEDS: ENSURE ENLIVE (VAN) 240 ML LIQUID PO SCH ×2 (08:02→16:27)
[2020-06-30] MEDS: PROPRANOLOL HCL 40 MG TABLET PO SCH ×2 (08:07→16:48)
[2020-06-30] MEDS: PANTOPRAZOLE SODIUM 40 MG TABLET.DR PO SCH (08:07)
[2020-06-30] MEDS: FERROUS SULFATE 325 MG TABEC PO SCH ×2 (08:07→16:28)
[2020-06-30] MEDS: FLUTICASONE PROP NASAL SPRAY 16 GM BOTTLE NS SCH (08:10)
[2020-06-30] MEDS: SODIUM CHLORIDE 1,000 MG TABLET PO SCH (09:00)
[2020-06-30] MEDS: LORAZEPAM 1 MG TABLET PO PRN ×2 (14:37→20:32)
[2020-06-30 16:00] VITALS: BP 104/41
--- NOTE | 2020-06-30 18:41 | NUR ---
received patient lying in bed denies any pain or discomfort, patient is A/o x2 remains feels hopeless and helpless.compliant with Am medication , patient with poor appetite encourage for po intake,will continue close monitoring.
[2020-06-30 19:59] VITALS: BP 116/51
[2020-06-30] MEDS: ATORVASTATIN 20 MG TABLET PO SCH (20:32)
[2020-06-30] MEDS: OLANZAPINE 2.5 MG TABLET PO SCH (20:32)
[2020-06-30] MEDS ORDERED: TEMAZEPAM 7.5 MG CAPSULE ONE (23:17)
[2020-07-01] MEDS: TEMAZEPAM 7.5 MG CAPSULE PO PRN (03:14)
--- NOTE | 2020-07-01 05:56 | NUR ---
Patient was up and down during the night. PRN medications given . At start of shift patient was anxious and needed to walk up and down the reyna using a FWW. This behavior continued sparaticly throughout the night. When asked, patient denied SI. Lean Facilitator was able to engage in meaningful conversation with the patient. Total sleep hours last night were 4.00, despite receiving a sleeping medication. Continuing to monitor for safety with frequent rounding and bed alarm is on at this time.
[2020-07-01] MEDS: PANTOPRAZOLE SODIUM 40 MG TABLET.DR PO SCH (06:41)
[2020-07-01 07:30] VITALS: BP 116/42
[2020-07-01] MEDS: FERROUS SULFATE 325 MG TABEC PO SCH ×2 (08:39→17:03)
[2020-07-01] MEDS: SODIUM CHLORIDE 1,000 MG TABLET PO SCH (08:39)
[2020-07-01] MEDS: ASPIRIN 81 MG TAB.CHEW PO SCH (08:39)
[2020-07-01] MEDS: PROPRANOLOL HCL 40 MG TABLET PO SCH ×2 (08:40→17:04)
[2020-07-01] MEDS: FLUTICASONE PROP NASAL SPRAY 16 GM BOTTLE NS SCH (08:40)
[2020-07-01] MEDS: ENSURE ENLIVE (VAN) 240 ML LIQUID PO SCH ×2 (08:41→17:04)
--- NOTE | 2020-07-01 09:00 | NUR ---
AWAKE ALERT MANAGEABLE EASILY REDIRECTABLE GETS DISORITED AT TIMES UP AND AMBULATORY WITH THE FRONT WHEEL WALKER COMPLIANT AND COOPERATIVE MADE COMFORTABLE SAFE AND THERAPEUTIC ENVIRONMENT PROVIDED AT ALL TIMES.
--- NOTE | 2020-07-01 14:49 | NUR ---
Individual Counseling: social worker masters met with patient for brief counseling to help address patients presenting problem disorganized thought process. Patient appeared anxious and disorganized. Patient was uncooperative with this SW and began to yell. This SW was unable to conduct brief therapy at this time.
[2020-07-01 15:08] VITALS: BP 115/57
--- NOTE | 2020-07-01 18:00 | NUR ---
SEEN RESTING IN ROOM REQUESTED FOR HER ROOM LIGHTS TO BE TURNED OFF STATED THAT SHE IS TIRED AND WILL TRY TO REST DENIES C/O AT THIS TIME
[2020-07-01 20:00] VITALS: BP 130/53
[2020-07-01] MEDS: OLANZAPINE 2.5 MG TABLET PO SCH (20:57)
[2020-07-01] MEDS: ATORVASTATIN 20 MG TABLET PO SCH (20:57)
[2020-07-01] MEDS: LORAZEPAM 1 MG TABLET PO PRN (23:29)
[2020-07-01] MEDS: ACETAMINOPHEN 325 MG TABLET PO PRN (23:30)
[2020-07-02] MEDS: MAG HYDROX/AL HYDROX/SIMETH 30 ML LIQUID UDC PO PRN (00:37)
[2020-07-02] MEDS: PANTOPRAZOLE SODIUM 40 MG TABLET.DR PO SCH (06:04)
[2020-07-02 07:30] VITALS: BP 131/70
[2020-07-02] MEDS: ASPIRIN 81 MG TAB.CHEW PO SCH (08:41)
[2020-07-02] MEDS: FERROUS SULFATE 325 MG TABEC PO SCH ×2 (08:41→17:29)
[2020-07-02] MEDS: SODIUM CHLORIDE 1,000 MG TABLET PO SCH (08:41)
[2020-07-02] MEDS: PROPRANOLOL HCL 40 MG TABLET PO SCH ×2 (08:42→17:00)
[2020-07-02] MEDS: ENSURE ENLIVE (VAN) 240 ML LIQUID PO SCH ×2 (08:42→17:28)
[2020-07-02] MEDS: FLUTICASONE PROP NASAL SPRAY 16 GM BOTTLE NS SCH (08:43)
--- NOTE | 2020-07-02 10:03 | NUR ---
Friend Contact: This SW contacted patient's friend Zuleyma ([phone]) and left a voicemail that patient will be discharged 07/03/[address] [facility].
--- NOTE | 2020-07-02 10:34 | NUR ---
Friend Contact: This SW contacted patient's friend Zuleyma ([phone]) and discussed discharge plan and stated patient will be discharged tomorrow 07/03/[address] back [address] [facility]. Patient's friend Zuleyma is aware and agreeable with this plan.
[2020-07-02] MEDS: LORAZEPAM 1 MG TABLET PO PRN ×2 (14:21→21:41)
[2020-07-02] MEDS ORDERED: POLYVINYL ALCOHOL OPHT DROPS 15 ML BOTTLE EACHEYE PRN (14:30)
--- NOTE | 2020-07-02 15:03 | NUR ---
Individual Counseling: grout worker met with patient for brief counseling to help address patients presenting problem disorganized thought process. Patient appeared anxious and stated she is "tired" and wants to "sleep". This SW was unable to conduct therapy at this time.
[2020-07-02 16:00] VITALS: BP 104/52
--- NOTE | 2020-07-02 18:56 | NUR ---
patient is alert, oriented x4, denied suicidal thoughts, kept safe, monitored per unit policy
[2020-07-02] MEDS: OLANZAPINE 2.5 MG TABLET PO SCH (20:05)
[2020-07-02] MEDS: ATORVASTATIN 20 MG TABLET PO SCH (20:05)
--- NOTE | 2020-07-02 20:57 | NUR ---
Received pt resting in bed. No acute distress noted. Denies SI, hallucination. Pt able to CFS. Due meds given as ordered. Pt noted be isolative and mostly stays in the room. Safety measures maintained. Will continue to monitor.
[2020-07-02 21:00] VITALS: BP 124/52
[2020-07-02] MEDS: TEMAZEPAM 7.5 MG CAPSULE PO PRN (23:50)
[2020-07-02] MEDS: ACETAMINOPHEN 325 MG TABLET PO PRN (23:50)
[2020-07-03] MEDS: PANTOPRAZOLE SODIUM 40 MG TABLET.DR PO SCH (06:02)
[2020-07-03 07:49] VITALS: BP 122/58
--- NOTE | 2020-07-03 08:04 | NUR ---
Discharge Note: Patient will be discharged to [facility] facility, [facility] [place] [address]; ) via Ambulance transportation at 1PM. Wildlife Control Operator spoke with Debbie Irrigation System Installer at [facility]; ([phone]), who stated patient will be accepted back at facility today. Patients friend Zuleyma ([phone]) is aware of discharge. Patient is alert and oriented x2 and is unable to plan for self-care. Patient denies any suicidal or homicidal ideations. Patient is aware and agreeable with discharge plans. Patient will continue to follow-up with (Psychiatrist) Dr. Duran and (Slate Cutter Operator) Dr. Gayle at [facility] [place] [address]; ). Patient presents with euthymic and congruent mood.
[2020-07-03 10:13] VITALS: BP 122/58
[2020-07-03] MEDS: ASPIRIN 81 MG TAB.CHEW PO SCH (10:13)
[2020-07-03] MEDS: PROPRANOLOL HCL 40 MG TABLET PO SCH (10:13)
[2020-07-03] MEDS: FERROUS SULFATE 325 MG TABEC PO SCH (10:13)
[2020-07-03] MEDS: SODIUM CHLORIDE 1,000 MG TABLET PO SCH (10:14)
[2020-07-03] MEDS: FLUTICASONE PROP NASAL SPRAY 16 GM BOTTLE NS SCH (10:14)
[2020-07-03] MEDS: ENSURE ENLIVE (VAN) 240 ML LIQUID PO SCH (10:33)
--- NOTE | 2020-07-03 13:30 | NUR ---
Pt is discharged to [facility]. via ambulance. Pt is aware and willing to go. No distress noted. VS are stable, all belongings returned. Report was called in and given to BOOGIE Delacruz.
== END 2020-07-03 12:30 | DRG 885 ==
LOC: ER 15:05 → GPS 20:04
PROVIDERS: ADMIT Psychiatry & Neurology Psychiatry; ATTEND Registered Nurse
DX: F29 Unspecified psychosis not due to a substance or known physiological condition (principal); M32.9 Systemic lupus erythematosus, unspecified; E44.0 Moderate protein-calorie malnutrition; Z68.1 Body mass index [BMI] 19.9 or less, adult; E87.1 Hypo-osmolality and hyponatremia; N39.0 Urinary tract infection, site not specified; E78.5 Hyperlipidemia, unspecified; D50.9 Iron deficiency anemia, unspecified; F20.9 Schizophrenia, unspecified; F41.9 Anxiety disorder, unspecified; I10 Essential (primary) hypertension; I25.10 Atherosclerotic heart disease of native coronary artery without angina pectoris; K21.9 Gastro-esophageal reflux disease without esophagitis; R62.7 Adult failure to thrive; Z20.822 Contact with and (suspected) exposure to COVID-19; J44.9 Chronic obstructive pulmonary disease, unspecified; E88.09 Other disorders of plasma-protein metabolism, not elsewhere classified; R53.1 Weakness; Z68.20 Body mass index [BMI] 20.0-20.9, adult; B96.89 Other specified bacterial agents as the cause of diseases classified elsewhere
CPT/HCPCS: 36415; 70030-TC; 71045; 83605; 84443; 85025; 85730; 87040; 87086; 93005; A4663; J3535; J7030